=== PATIENT | male | born 1965 | race African-American/Black ===

== ENCOUNTER 2017-12-16 12:16 | Emergency (ER) | payer OTHER ==
[2017-12-16] MEDS ORDERED: Ketorolac Tromethamine 30 MG/ML VIAL ONE (12:31)
--- NOTE | 2017-12-16 13:49 | RAD ---
RIGHT SHOULDER THREE VIEW: History: Pain. Comparison: 2014 FINDINGS: There is a undersurface remodeling from prior acromial process. Suture anchors of the humerus are pre sent. No acute fracture or malalignment. IMPRESSION: Post-surgical changes. No acute abnormality. POS: [facility]
--- NOTE | 2017-12-16 13:57 | RAD ---
TWO VIEWS OF THE RIGHT HIP: Comparison: 02-07-16 History: Right leg pain after twisting right hip at 9:00 this morning. FINDINGS: Two views of the right hip shows the patient to be status post right arthroplasty without perihilar l ucency or fracture. Multiple surgical clips and bony hypertrophy are seen along the lateral aspect of the proximal femur. IMPRESSION: No evidence of acute osseous abnormality. POS: [facility]
== END 2017-12-16 13:50 | disposition home or self-care (01) ==
LOC: ERS 12:16
DX: T14.8XXA Other injury of unspecified body region, initial encounter (principal); J06.9 Acute upper respiratory infection, unspecified; J44.9 Chronic obstructive pulmonary disease, unspecified; F41.9 Anxiety disorder, unspecified; F31.9 Bipolar disorder, unspecified; F43.10 Post-traumatic stress disorder, unspecified; Z87.891 Personal history of nicotine dependence; X50.1XXA Overexertion from prolonged static or awkward postures, initial encounter; Y92.69 Other specified industrial and construction area as the place of occurrence of the external cause; Y99.0 Civilian activity done for income or pay
CPT/HCPCS: 94640; 96372; J1885; J7620

== ENCOUNTER 2017-12-26 03:28 | Emergency (ER) | payer OTHER ==
[2017-12-26] MEDS ORDERED: Diazepam 5 MG TAB ONE (04:31)
[2017-12-26] MEDS ORDERED: Ketorolac Tromethamine 60 MG/2 ML VIAL ONE (04:31)
[2017-12-26 05:01] LABS: #Basophils 0.1 thou/uL (0.0-0.2); #Eosinphils 0.3 thou/uL (0.0-0.7); #Lymphocytes 1.4 thou/uL (1.20-3.40); #Monocytes 0.8 thou/uL (0.11-0.59); #Neutrophils 6.4 thou/uL (1.40-6.50); %Basophils 0.8 % (0.0-1.0); %Eosinophils 3.5 % (0.0-10.0); %Lymphocytes 15.5 % (21.0-51.0); %Neutrophils 71.3 % (42.0-75.0); Hemoglobin 14.6 g/dL (14.0-18.0); Mean Corpuscular HGB CONC 34.2 g/dL (32.0-36.0); Mean Corpuscular Hemoglobin 33.4 pg (27.0-31.0); Mean Corpuscular Volume 97.7 fl (80.0-94.0); Mean Platelet Volume 6.8 fL (7.4-10.4); Platelet Count 314 thou/uL (130-400); RBC Distribution Width 11.4 % (11.5-14.5); Red Blood Cell (RBC) Count 4.36 mill/uL (4.70-6.10); White Blood Cell (WBC) Count 8.9 thou/uL (4.8-10.8)
[2017-12-26 05:19] LABS: ALT (SGPT) 11 U/L (8-55); AST (SGOT) 18 U/L (5-34); Albumin 4.2 g/dL (3.5-5.0); Alkaline Phosphatase 82 U/L (40-150); Anion Gap 9 mmol/L (10-20); BUN (Urea Nitrogen) 14 mg/dL (8.9-20.6); Bilirubin, Total 0.7 mg/dL (0.2-1.2); Calc. Creatinine Clearance 0 mL/min (70-130); Calcium 9.4 mg/dL (7.8-10.44); Carbon Dioxide 30 mmol/L (22-29); Chloride 103 mmol/L (98-107); Estimated GFR-MDRD 75; Glucose 103 mg/dL (70-105); Potassium 3.3 mmol/L (3.5-5.1); Protein, Total 7.2 g/dL (6.0-8.3); Sodium 139 mmol/L (136-145)
--- NOTE | 2017-12-26 07:36 | RAD ---
SINGLE VIEW CHEST: Date: 12/26/17 COMPARISON: 01/11/17. HISTORY: Severe right-sided back and rib pain FINDINGS: Single view of the chest shows a normal sized cardiomediastinal silhouette. There is no evidence of c onsolidation, mass, or pleural effusion. The bones are unremarkable. IMPRESSION: No evidence of acute cardiopulmonary disease. POS: OFF
== END 2017-12-26 06:15 | disposition home or self-care (01) ==
LOC: ERS 03:28
DX: M54.6 Pain in thoracic spine (principal); G89.29 Other chronic pain; F43.9 Reaction to severe stress, unspecified; R55 Syncope and collapse; R32 Unspecified urinary incontinence; J44.9 Chronic obstructive pulmonary disease, unspecified; F41.9 Anxiety disorder, unspecified; F31.9 Bipolar disorder, unspecified; F17.210 Nicotine dependence, cigarettes, uncomplicated
CPT/HCPCS: 36415; 71045; 80053; 85025; 85652; 86140; 93005; 96372; J1885

== ENCOUNTER 2017-12-26 19:20 | Emergency (ER) | payer OTHER | END 2017-12-26 20:40 | disposition home or self-care (01) | LOC: ERS 19:20 | DX: Z76.0 Encounter for issue of repeat prescription (principal); J44.9 Chronic obstructive pulmonary disease, unspecified; F31.9 Bipolar disorder, unspecified; F41.9 Anxiety disorder, unspecified; F43.10 Post-traumatic stress disorder, unspecified; Z87.891 Personal history of nicotine dependence; M54.6 Pain in thoracic spine; G89.29 Other chronic pain; R55 Syncope and collapse; R32 Unspecified urinary incontinence; F17.210 Nicotine dependence, cigarettes, uncomplicated | CPT/HCPCS: 36415; 71045; 80053; 85025; 85652; 86140; 93005; 96372; 99281; J1885 ==

== ENCOUNTER 2018-01-09 14:03 | Emergency (ER) | payer OTHER ==
[2018-01-09] MEDS ORDERED: Adacel (T-DAP) 0.5 ML VIAL ONE (14:34)
[2018-01-09] MEDS ORDERED: Bacitracin Zinc 1 Packet ONE ×2 (14:34→14:36)
== END 2018-01-09 14:57 | disposition home or self-care (01) ==
LOC: SCSER 14:03
DX: M54.5 Low back pain (principal); J44.9 Chronic obstructive pulmonary disease, unspecified; Z87.891 Personal history of nicotine dependence; F43.10 Post-traumatic stress disorder, unspecified; F41.9 Anxiety disorder, unspecified; F31.9 Bipolar disorder, unspecified; Z79.899 Other long term (current) drug therapy
CPT/HCPCS: 90471; 90715

== ENCOUNTER 2018-08-30 17:44 | Emergency (ER) | payer OTHER | END 2018-08-30 18:48 | disposition home or self-care (01) | LOC: ERS 17:44 | DX: J06.9 Acute upper respiratory infection, unspecified (principal); J44.9 Chronic obstructive pulmonary disease, unspecified; F31.9 Bipolar disorder, unspecified; F43.10 Post-traumatic stress disorder, unspecified; F41.9 Anxiety disorder, unspecified; Z76.0 Encounter for issue of repeat prescription; Z87.891 Personal history of nicotine dependence ==

== ENCOUNTER 2018-09-08 02:01 | Emergency (ER) | payer OTHER ==
[2018-09-08] MEDS ORDERED: predniSONE 20 MG TAB ONE (02:50)
--- NOTE | 2018-09-08 09:06 | RAD ---
2 VIEWS CHEST: Date: 09/08/18 COMPARISON: 06/12/15. HISTORY: Cough. FINDINGS: Two views of the chest show normal sized cardiomediastinal silhouette. There is no evidence of consol idation, mass, or pleural effusion. The bones are unremarkable. IMPRESSION: No evidence of acute cardiopulmonary disease. POS: [facility]
== END 2018-09-08 03:17 | disposition home or self-care (01) ==
LOC: ERS 02:01
DX: J20.9 Acute bronchitis, unspecified (principal); J44.9 Chronic obstructive pulmonary disease, unspecified; F90.9 Attention-deficit hyperactivity disorder, unspecified type; F31.9 Bipolar disorder, unspecified; Z87.891 Personal history of nicotine dependence; Z79.899 Other long term (current) drug therapy
CPT/HCPCS: 71046; 87804; J7506; J7620

== ENCOUNTER 2018-09-12 18:11 | Emergency (ER) | payer OTHER | END 2018-09-12 18:58 | disposition home or self-care (01) | LOC: ERS 18:11 | DX: J40 Bronchitis, not specified as acute or chronic (principal); J44.9 Chronic obstructive pulmonary disease, unspecified; Z87.891 Personal history of nicotine dependence | CPT/HCPCS: 99283 ==

== ENCOUNTER 2018-12-28 17:29 | Emergency (ER) | payer OTHER | END 2018-12-28 17:58 | disposition home or self-care (01) | LOC: SCSER 17:29 | DX: J06.9 Acute upper respiratory infection, unspecified (principal); J44.9 Chronic obstructive pulmonary disease, unspecified; Z87.891 Personal history of nicotine dependence | CPT/HCPCS: 99283 ==

== ENCOUNTER 2019-01-20 02:16 | Emergency (ER) | payer OTHER | END 2019-01-20 03:06 | disposition left against medical advice (07) | LOC: ERS 02:16 | DX: Z53.21 Procedure and treatment not carried out due to patient leaving prior to being seen by health care provider (principal) ==

== ENCOUNTER 2019-01-24 14:48 | Emergency (ER) | payer OTHER | END 2019-01-24 15:10 | disposition home or self-care (01) | LOC: SCSER 14:48 | DX: J30.9 Allergic rhinitis, unspecified (principal); H65.92 Unspecified nonsuppurative otitis media, left ear; J44.9 Chronic obstructive pulmonary disease, unspecified; F41.9 Anxiety disorder, unspecified; F32.9 Major depressive disorder, single episode, unspecified; Z87.891 Personal history of nicotine dependence | CPT/HCPCS: 99282 ==

== ENCOUNTER 2019-03-21 06:37 | Emergency (ER) | payer OTHER ==
[2019-03-21] MEDS ORDERED: Ketorolac Tromethamine 60 MG/2 ML VIAL ONE (07:20)
== END 2019-03-21 07:26 | disposition home or self-care (01) ==
LOC: ERS 06:37
DX: M54.42 Lumbago with sciatica, left side (principal); G89.29 Other chronic pain; J44.9 Chronic obstructive pulmonary disease, unspecified; F32.9 Major depressive disorder, single episode, unspecified; F41.9 Anxiety disorder, unspecified; Z87.891 Personal history of nicotine dependence; Z79.899 Other long term (current) drug therapy
CPT/HCPCS: 96372; J1885

== ENCOUNTER 2019-05-22 17:16 | Emergency (ER) | payer OTHER ==
[2019-05-22] MEDS ORDERED: Ondansetron ODT 4 MG TAB ONE (17:39)
[2019-05-22 17:56] LABS: #Eosinphils 0.2 thou/uL (0.0-0.7); #Lymphocytes 0.8 thou/uL (1.20-3.40); #Monocytes 0.4 thou/uL (0.11-0.59); #Neutrophils 7.3 thou/uL (1.40-6.50); %Basophils 0.2 % (0.0-1.0); %Eosinophils 2.5 % (0.0-10.0); %Lymphocytes 8.6 % (21.0-51.0); %Neutrophils 83.7 % (42.0-75.0); Hemoglobin 15.5 g/dL (14.0-18.0); Mean Corpuscular HGB CONC 32.7 g/dL (32.0-36.0); Mean Corpuscular Hemoglobin 32.1 pg (27.0-31.0); Mean Corpuscular Volume 98.1 fL (78.0-98.0); Mean Platelet Volume 7.4 fL (7.4-10.4); Platelet Count 288 thou/uL (130-400); RBC Distribution Width 11.9 % (11.5-14.5); Red Blood Cell (RBC) Count 4.82 mill/uL (4.70-6.10); White Blood Cell (WBC) Count 8.7 thou/uL (4.8-10.8)
[2019-05-22 18:17] LABS: ALT (SGPT) 18 U/L (8-55); AST (SGOT) 18 U/L (5-34); Albumin 4.3 g/dL (3.5-5.0); Alkaline Phosphatase 69 U/L (40-150); Anion Gap 12 mmol/L (10-20); BUN (Urea Nitrogen) 12 mg/dL (8.4-25.7); Calc. Creatinine Clearance 0 mL/min (70-130); Calcium 9.4 mg/dL (7.8-10.44); Carbon Dioxide 23 mmol/L (22-29); Chloride 110 mmol/L (98-107); Estimated GFR-MDRD Greater than 90; Globulin 2.9 g/dL (2.4-3.5); Glucose 112 mg/dL (70-105); Lipase 14 U/L (8-78); Potassium 3.2 mmol/L (3.5-5.1); Protein, Total 7.2 g/dL (6.0-8.3); Sodium 142 mmol/L (136-145)
[2019-05-22] MEDS ORDERED: Ketorolac Tromethamine 60 MG/2 ML VIAL ONE (18:54)
== END 2019-05-22 19:16 | disposition home or self-care (01) ==
LOC: ERS 17:16
DX: M54.5 Low back pain (principal); R11.2 Nausea with vomiting, unspecified; J44.9 Chronic obstructive pulmonary disease, unspecified; F41.9 Anxiety disorder, unspecified; F32.9 Major depressive disorder, single episode, unspecified; Z87.891 Personal history of nicotine dependence; Z79.899 Other long term (current) drug therapy; Z79.51 Long term (current) use of inhaled steroids; W18.30XA Fall on same level, unspecified, initial encounter
CPT/HCPCS: 36415; 80053; 83690; 85025; 96372; 99284; J1885; Q0162

== ENCOUNTER 2019-07-14 08:50 | Emergency (ER) | payer OTHER | END 2019-07-14 09:11 | disposition left against medical advice (07) | LOC: ERS 08:50 | DX: Z53.21 Procedure and treatment not carried out due to patient leaving prior to being seen by health care provider (principal) ==

== ENCOUNTER 2019-07-14 13:47 | Emergency (ER) | payer OTHER | END 2019-07-14 14:44 | disposition home or self-care (01) | LOC: ERS 13:47 | DX: H60.93 Unspecified otitis externa, bilateral (principal); T50.995A Adverse effect of other drugs, medicaments and biological substances, initial encounter; J45.909 Unspecified asthma, uncomplicated; F31.9 Bipolar disorder, unspecified; F41.9 Anxiety disorder, unspecified; F20.9 Schizophrenia, unspecified; Z79.51 Long term (current) use of inhaled steroids | CPT/HCPCS: 99283 ==

== ENCOUNTER 2019-11-26 15:40 | Outpatient (CLI) | payer OTHER ==
--- NOTE | 2019-11-26 16:15 | ULT ---
Soft tissue sonogram right back HISTORY: Pain and swelling. FINDINGS: Sonographic evaluation was performed in the area of pain and swelling at the right back. It was also compared to the left side at the same level. Underlying and muscle has expected echotexture. No solid or cystic masses. IMPRESSION: No significant abnormalities are demonstrated.
== END 2019-11-26 15:41 | disposition home or self-care (01) ==
LOC: BICULT 15:40
PROVIDERS: ATTEND Family Medicine
DX: R22.2 Localized swelling, mass and lump, trunk (principal); K21.9 Gastro-esophageal reflux disease without esophagitis; F31.9 Bipolar disorder, unspecified; J44.9 Chronic obstructive pulmonary disease, unspecified; F17.290 Nicotine dependence, other tobacco product, uncomplicated
CPT/HCPCS: 76999

== ENCOUNTER 2020-04-30 18:52 | Emergency (ER) | payer OTHER | END 2020-04-30 19:55 | disposition left against medical advice (07) | LOC: ERS 18:52 | DX: Z53.21 Procedure and treatment not carried out due to patient leaving prior to being seen by health care provider (principal) ==

== ENCOUNTER 2020-10-25 10:18 | Emergency (ER) | payer OTHER ==
--- NOTE | 2020-10-25 11:15 | RAD ---
EXAM: CHEST TWO VIEWS 10/25/2020 11:11 AM HISTORY: Cough and throat pain COMPARISON: September 08, 2018 and October 20, 2020 FINDINGS: Lungs: No acute airspace consolidation. Heart: Normal in size and contour. Pulmonary Vessels: Normal. Costophrenic Angles: Clear. Pneumothorax: None. Osseous Structures: There is scattered degenerative and osteoarthritic change present. Additional Findings: None. IMPRESSION: No significant acute intrathoracic disease.
== END 2020-10-25 12:01 | disposition home or self-care (01) ==
LOC: ERS 10:18
DX: J06.9 Acute upper respiratory infection, unspecified (principal)
CPT/HCPCS: 71046

== ENCOUNTER 2020-10-31 10:33 | Emergency (ER) | payer OTHER ==
--- NOTE | 2020-10-31 11:26 | RAD ---
EXAM: 4 views of the left knee HISTORY: Knee pain after falling off porch COMPARISON: None FINDINGS: No knee effusion is seen. There is no evidence of acute fracture or dislocation. No signifi cant degenerative changes are seen. Mild prepatellar soft tissue swelling is present. IMPRESSION: No evidence of acute osseous abnormality.
--- NOTE | 2020-10-31 11:26 | RAD ---
2 view chest: [10/31/2020] Comparison:10/25/2020 HISTORY: Cough, pain, fall FINDINGS: There is no pneumothorax or pleural fluid seen. No focal consolidation or alveolar edema no isidoro. There are prominent areas of left lateral osteophyte formation involving the mid thoracic spine as be fore. IMPRESSION: No acute findings.
--- NOTE | 2020-10-31 11:27 | RAD ---
EXAM: 3 views of the left shoulder HISTORY: Shoulder pain after fall COMPARISON: 03/25/2017 FINDINGS: There is no evidence of acute fracture or dislocation. Mild acromioclavicular degenerative changes are present. There is a small subacromial spur. No soft tissue swelling is seen. The visualized thorax is unremarkable. IMPRESSION: No evidence of acute osseous abnormality.
== END 2020-10-31 13:58 | disposition left against medical advice (07) ==
LOC: ERS 10:33
DX: Z53.21 Procedure and treatment not carried out due to patient leaving prior to being seen by health care provider (principal)
CPT/HCPCS: 71046

== ENCOUNTER 2021-05-21 19:51 | Emergency (ER) | payer OTHER | END 2021-05-21 23:04 | disposition home or self-care (01) | LOC: ERS 19:51 | DX: J18.9 Pneumonia, unspecified organism (principal); I10 Essential (primary) hypertension; Z79.899 Other long term (current) drug therapy | CPT/HCPCS: 36415; 71045; 80053; 83605; 84484; 85025; 87040; 93005; 96365; 96367; J0696; J2543 ==

== ENCOUNTER 2021-11-26 00:15 | Observation (INO) | payer OTHER ==
[2021-11-26] MEDS ORDERED: Naloxone HCl 0.4 mg/ml Vial ONE ×2 (00:24→00:30)
[2021-11-26 00:46] LABS: #Eosinphils 0.1 thou/uL (0.0-0.7); #Lymphocytes 2.1 thou/uL (1.20-3.40); #Monocytes 0.6 thou/uL (0.11-0.59); #Neutrophils 3.8 thou/uL (1.40-6.50); %Basophils 0.5 % (0.0-1.0); %Eosinophils 1.6 % (0.0-10.0); %Monocytes 8.6 % (0.0-10.0); %Neutrophils 57.3 % (42.0-75.0); Hemoglobin 11.7 g/dL (14.0-18.0); Mean Corpuscular HGB CONC 33.9 g/dL (32.0-36.0); Mean Corpuscular Hemoglobin 32.6 pg (27.0-31.0); Mean Corpuscular Volume 96.2 fL (78.0-98.0); Platelet Count 314 thou/uL (130-400); RBC Distribution Width 11.9 % (11.5-14.5); Red Blood Cell (RBC) Count 3.59 mill/uL (4.70-6.10); White Blood Cell (WBC) Count 6.6 thou/uL (4.8-10.8)
[2021-11-26 00:57] LABS: Amphetamine Not Detected (NotDetected); Barbiturates Screen Not Detected (NotDetected); Benzodiazepine Screen Not Detected (NotDetected); Cocaine Metabolite Screen Detected (NotDetected); Methadone Not Detected (NotDetected); Methamphetamine Not Detected (NotDetected); Opiate Screen Not Detected (NotDetected); Oxycodone Screen Not Detected (NotDetected); Phencyclidine (PCP) Not Detected (NotDetected); THC/Cannabinoid Screen Not Detected (NotDetected); Tricyclic Screen Detected (NotDetected)
[2021-11-26 01:08] LABS: ALT (SGPT) 14 U/L (8-55); AST (SGOT) 20 U/L (5-34); Acetaminophen Less than 6.0 mcg/mL (10.0-30.0); Albumin 3.3 g/dL (3.5-5.0); Alcohol 14 mg/dL (Less than 10); Alkaline Phosphatase 71 U/L (40-110); Anion Gap 15 mmol/L (10-20); BUN (Urea Nitrogen) 11 mg/dL (8.4-25.7); Bilirubin, Total 0.5 mg/dL (0.2-1.2); CK (CPK) 427 U/L (30-200); Calc. Creatinine Clearance 0 mL/min (70-130); Calcium 8.1 mg/dL (7.8-10.44); Carbon Dioxide 16 mmol/L (22-29); Chloride 108 mmol/L (98-107); Globulin 2.4 g/dL (2.4-3.5); Glucose 123 mg/dL (70-105); Magnesium 1.7 mg/dL (1.6-2.6); Protein, Total 5.7 g/dL (6.0-8.3); Salicylate Less than 8.0 mg/dL (15.0-30.0); Sodium 136 mmol/L (136-145)
[2021-11-26 02:38] LABS: Bilirubin Negative (Negative); Blood, Urine Trace (Negative); Glucose, Urine (Dipstick) Negative (Negative); Ketone, Urine Negative (Negative); Leukocyte Negative (Negative); Nitrite Negative (Negative); Protein, Urine (Dipstick) Negative (Neg-Trace); Specific Gravity, Urine 1.015 (1.005-1.030); Urobilinogen 0.2 mg/dL (Less than 2)
[2021-11-26 02:41] LABS: Clarity Clear (Clear)
[2021-11-26 02:46] LABS: RBC/HPF 0-3 HPF (0-3); Squamous Epithelial 0-3 HPF (0-3); WBC/HPF 0-3 HPF (0-3)
[2021-11-26] MEDS ORDERED: Ondansetron PF 4 MG/2 ML Vial IVP PRN (04:06)
[2021-11-26] MEDS ORDERED: Dexamethasone 10 MG/ML VIAL ONE (04:47)
[2021-11-26] MEDS ORDERED: cefTRIAXone\\ROCEPHIN 2 GM VIAL ONE (04:47)
[2021-11-26] MEDS ORDERED: Albuterol Sulfate 2.5 mg/3 ml Neb NEB PRN (04:59)
[2021-11-26] MEDS ORDERED: Potassium Chloride 20 MEQ/100 ML PREMIX BAG ONE ×2 (05:34→08:51)
[2021-11-26] MEDS: Potassium Chloride 20 MEQ in Premix Bag 1 BAG IVPB SCH ×2 (05:35→08:53)
[2021-11-26] MEDS ORDERED: Sodium Bicarb 50 MEQ/50 ML Abboject 8.4% SYRINGE IVP SCH (06:15)
[2021-11-26] MEDS ORDERED: Sodium Bicarb 50 MEQ/50 ML Abboject 8.4% SYRINGE ONE (07:53)
[2021-11-26 10:56] LABS: SARS-CoV-2 PCR by NAA Not Detected (NotDetected)
[2021-11-26] MEDS ORDERED: Sodium Chloride 0.9% 1,000 ML IV SCH (13:30)
[2021-11-26 14:04] VITALS: BMI 26.4
[2021-11-26] MEDS: methylPREDNISolone Sod Succ 40 MG VIAL IVP SCH ×3 (14:58→21:08)
[2021-11-26] MEDS: Acetaminophen 325 MG TAB PO PRN (14:58)
[2021-11-26] MEDS: Ibuprofen 200 MG TAB PO SCH ×2 (14:59→21:08)
[2021-11-26] MEDS: Thiamine HCl 200 MG/2 ML VIAL SLOW IVP SCH (14:59)
[2021-11-26] MEDS: Folic Acid 1 MG TAB PO SCH (15:00)
[2021-11-26] MEDS: Amoxicillin/Potassium Clav 875 MG TAB PO SCH ×2 (16:23→21:08)
[2021-11-26] MEDS ORDERED: Lorazepam 2 MG/ML VIAL ONE (17:29)
[2021-11-26] MEDS ORDERED: Lorazepam 2 MG/ML VIAL SLOW IVP SCH (17:30)
[2021-11-27] MEDS: Acetaminophen 325 MG TAB PO PRN (03:48)
[2021-11-27] MEDS ORDERED: Lidocaine 2% Viscous Solution 10 ML, Aluminum & Magnesium Hydroxide 30 ML SSW SCH (04:30)
[2021-11-27 04:36] LABS: #Lymphocytes 1.2 thou/uL (1.20-3.40); #Monocytes 0.6 thou/uL (0.11-0.59); %Basophils 0.1 % (0.0-1.0); %Eosinophils 0.1 % (0.0-10.0); %Monocytes 5.9 % (0.0-10.0); Mean Corpuscular HGB CONC 32.6 g/dL (32.0-36.0); Mean Corpuscular Hemoglobin 31.6 pg (27.0-31.0); Mean Corpuscular Volume 96.8 fL (78.0-98.0); Mean Platelet Volume 7.2 fL (7.4-10.4); Platelet Count 351 thou/uL (130-400); White Blood Cell (WBC) Count 9.7 thou/uL (4.8-10.8)
[2021-11-27] MEDS: Ibuprofen 200 MG TAB PO SCH (05:00)
[2021-11-27] MEDS: methylPREDNISolone Sod Succ 40 MG VIAL IVP SCH (05:00)
[2021-11-27 05:01] LABS: Anion Gap 14 mmol/L (10-20); BUN (Urea Nitrogen) 14 mg/dL (8.4-25.7); Calc. Creatinine Clearance 96 mL/min (70-130); Calcium 8.7 mg/dL (7.8-10.44); Carbon Dioxide 22 mmol/L (22-29); Chloride 108 mmol/L (98-107); Glucose 179 mg/dL (70-105); Magnesium 1.7 mg/dL (1.6-2.6); Potassium 3.5 mmol/L (3.5-5.1); Sodium 140 mmol/L (136-145)
[2021-11-27] MEDS ORDERED: Mometasone 200 MCG/Formoterol 5 MCG 120 PUFF INHALER INH SCH (06:30)
[2021-11-27] MEDS ORDERED: Lorazepam 2 MG/ML VIAL SLOW IVP PRN (08:18)
[2021-11-27] MEDS ORDERED: HYDROmorphone 0.5 MG/0.5 ML SYRINGE SLOW IVP SCH (08:30)
[2021-11-27] MEDS ORDERED: FLU VACC QS2021-22(6MOS UP)/PF 60 MCG/0.5 ML SYRINGE IM ONE (09:00)
[2021-11-27] MEDS: Amoxicillin/Potassium Clav 875 MG TAB PO SCH (09:13)
[2021-11-27] MEDS: Thiamine HCl 200 MG/2 ML VIAL SLOW IVP SCH (09:13)
[2021-11-27] MEDS: Folic Acid 1 MG TAB PO SCH (09:13)
[2021-11-27 12:22] VITALS: BP 130/79; TEMP 96.8
[2021-11-28] MEDS ORDERED: Thiamine 100 MG TAB PO SCH (09:00)
== END 2021-11-27 14:10 | disposition home or self-care (01) ==
LOC: ERS 00:15 → ERHOLD 04:38 → 2NO 13:21
PROVIDERS: ADMIT Internal Medicine; ATTEND Internal Medicine
DX: G93.41 Metabolic encephalopathy (principal); E87.2 Acidosis; K13.79 Other lesions of oral mucosa; E87.6 Hypokalemia; I10 Essential (primary) hypertension; J45.909 Unspecified asthma, uncomplicated; J32.0 Chronic maxillary sinusitis; F17.210 Nicotine dependence, cigarettes, uncomplicated; Z86.711 Personal history of pulmonary embolism; Z79.899 Other long term (current) drug therapy; Z91.041 Radiographic dye allergy status; Z20.822 Contact with and (suspected) exposure to COVID-19
CPT/HCPCS: 36415; 51701; 70450; 70490; 71045; 80048; 80053; 80306; 80307; 81003; 82550; 83605; 83690; 83735; 84484; 85025; 87081; 87430; 87633; 87798; 93005; 96365; 96375; 96376; G0378; J0696; J1100; J1170; J2060; J2310; J2405; J2920; J3411; J3480; U0003; U0005

== ENCOUNTER 2022-01-07 09:51 | Outpatient (CLI) | payer OTHER | END 2022-01-07 09:52 | disposition home or self-care (01) | LOC: RAD 09:51 | PROVIDERS: ATTEND Internal Medicine Critical Care Medicine | DX: R06.00 Dyspnea, unspecified (principal) | CPT/HCPCS: 71046 ==

== ENCOUNTER 2022-02-05 16:13 | Emergency (ER) | payer OTHER | END 2022-02-05 18:00 | disposition home or self-care (01) | LOC: ERS 16:13 | DX: M25.562 Pain in left knee (principal); M25.572 Pain in left ankle and joints of left foot; M25.512 Pain in left shoulder; I10 Essential (primary) hypertension; J45.909 Unspecified asthma, uncomplicated; F17.210 Nicotine dependence, cigarettes, uncomplicated; W18.30XA Fall on same level, unspecified, initial encounter ==

== ENCOUNTER 2023-06-02 16:21 | Emergency (ER) | payer OTHER ==
[2023-06-02 17:10] LABS: #Basophils 0.1 thou/uL (0.0-0.2); #Eosinphils 0.1 thou/uL (0.0-0.7); #Monocytes 1.3 thou/uL (0.11-0.59); #Neutrophils 9.7 thou/uL (1.40-6.50); %Basophils 0.6 % (0.0-1.0); %Eosinophils 0.6 % (0.0-10.0); %Lymphocytes 21.9 % (21.0-51.0); %Monocytes 8.8 % (0.0-10.0); %Neutrophils 67.3 % (42.0-75.0); Hemoglobin 14.6 g/dL (14.0-18.0); Mean Corpuscular HGB CONC 33.6 g/dL (32.0-36.0); Mean Corpuscular Hemoglobin 30.4 pg (27.0-31.0); Mean Corpuscular Volume 90.4 fl (78.0-98.0); Mean Platelet Volume 9.4 fL (7.4-10.4); Platelet Count 430 10x3/uL (130-400); RBC Distribution Width 13.1 % (11.5-14.5); White Blood Cell (WBC) Count 14.4 10x3/uL (4.8-10.8)
[2023-06-02] MEDS ORDERED: Piperacillin/Tazobactam 4.5 GM VIAL ONE (17:10)
[2023-06-02] MEDS ORDERED: Dexamethasone 10 MG/ML VIAL ONE (17:10)
[2023-06-02 17:27] LABS: Prothrombin Time 13.4 sec (12.0-14.7)
[2023-06-02 17:28] LABS: PTT 39.4 sec (22.9-36.1)
[2023-06-02 17:31] LABS: ALT (SGPT) 12 U/L (8-55); AST (SGOT) 12 U/L (5-34); Albumin 4.1 g/dL (3.5-5.0); Alkaline Phosphatase 89 U/L (40-110); Anion Gap 14 mmol/L (10-20); BUN (Urea Nitrogen) 7 mg/dL (8.4-25.7); Bilirubin, Total 0.4 mg/dL (0.2-1.2); Calc. Creatinine Clearance 0 mL/min (70-130); Calcium 9.9 mg/dL (7.8-10.44); Carbon Dioxide 26 mmol/L (22-29); Chloride 103 mmol/L (98-107); Estimated GFR 79; Globulin 4.2 g/dL (2.4-3.5); Glucose 101 mg/dL (70-105); Potassium 3.8 mmol/L (3.5-5.1); Protein, Total 8.3 g/dL (6.0-8.3); Sodium 139 mmol/L (136-145)
[2023-06-02 18:17] LABS: Acetaminophen Less than 10 mcg/mL (10.0-30.0); Alcohol Less than 10.0 mg/dL (Less than 10); Salicylate Less than 8.0 mg/dL (15.0-30.0)
[2023-06-02] MEDS ORDERED: Vancomycin 1 GM/200 ML (FROZEN) BAG ONE (18:22)
[2023-06-02] MEDS ORDERED: diphenhydrAMINE 50 MG/ML VIAL ONE (18:22)
[2023-06-02] MEDS ORDERED: Famotidine/PF 20 mg/2ml Vial ONE (18:22)
[2023-06-02 18:54] LABS: Bacteria/HPF None Seen HPF (None Seen); Bilirubin Negative (Negative); Blood, Urine Negative (Negative); CAUTI Indications for Culture Dysuria,urgency,freq; Clarity Clear (Clear); Glucose, Urine (Dipstick) Normal (Negative); Ketone, Urine Negative (Negative); Leukocyte Negative Leu/uL (Negative); Nitrite Negative (Negative); Protein, Urine (Dipstick) Negative (Neg-Trace); RBC/HPF 0-3 HPF (0-3); Specific Gravity, Urine 1.012 (1.002-1.036); Squamous Epithelial None Seen HPF (0-3); Urobilinogen Normal mg/dL (Less than 2); WBC/HPF None Seen HPF (0-3); pH, Urine 7.5 (5.0-9.0)
[2023-06-02 18:56] LABS: Urine Culture Reflex No No
[2023-06-02 18:59] LABS: Amphetamine Not Detected (NotDetected); Barbiturates Screen Not Detected (NotDetected); Benzodiazepine Screen Not Detected (NotDetected); Cocaine Metabolite Screen Detected (NotDetected); Methadone Not Detected (NotDetected); Methamphetamine Not Detected (NotDetected); Opiate Screen Not Detected (NotDetected); Oxycodone Screen Not Detected (NotDetected); Phencyclidine (PCP) Not Detected (NotDetected); THC/Cannabinoid Screen Not Detected (NotDetected); Tricyclic Screen Not Detected (NotDetected)
== END 2023-06-02 20:30 | disposition home or self-care (01) ==
LOC: ERS 16:21
DX: J02.9 Acute pharyngitis, unspecified (principal); I10 Essential (primary) hypertension; Z79.01 Long term (current) use of anticoagulants
CPT/HCPCS: 36415; 36416; 70490; 71045; 80053; 80306; 80307; 81001; 83605; 83880; 84484; 85025; 85610; 85730; 87040; 87086; 94760; 96365; 96367; 96375; J1100; J1200; J2543; J3370-JW; S0028

== ENCOUNTER 2023-08-04 13:32 | Emergency (ER) | payer OTHER ==
[2023-08-04] MEDS ORDERED: Ketorolac Tromethamine 30 MG/ML VIAL ONE (14:31)
== END 2023-08-04 15:00 | disposition home or self-care (01) ==
LOC: ERS 13:32
DX: J06.9 Acute upper respiratory infection, unspecified (principal); K21.9 Gastro-esophageal reflux disease without esophagitis; E03.9 Hypothyroidism, unspecified; Z79.899 Other long term (current) drug therapy; Z20.822 Contact with and (suspected) exposure to COVID-19
CPT/HCPCS: 96372; J1885